=== PATIENT | female | born 1960 | race Two or more races ===

== ENCOUNTER 2024-05-05 10:55 | Outpatient (AMB) | payer BC, SELFPAY ==
[2024-05-05 11:11] VITALS: BP 167/102; PULSE 75; RESP 19; TEMP 36.4; O2SAT 95; BMI 28.3
--- NOTE | 2024-05-05 11:11 | GSCOFFNT_ITS ---
Vital Signs - [facility] 05/05/24 11:11 Height 1.68 m Height Method Stated Weight 79.634 kg Weight Measurement Method Standing Scale BMI 28.3 BP 167/102 H Blood Pressure Source Automatic Cuff Blood Pressure Location Right Upper Arm Position Sitting Respiration 19 Pulse 75 Pulse Source Monitor Temp 97.5 F Temp Source Temporal Artery Scan Pulse Oximetry (%) 95 Oxygen Delivery Method Room Air Med/Allergies Allergies & Medications Allergies No Known Drug Allergies Allergy (Verified 05/05/24 11:12) Medication Reconciliation No Known Home Medications 05/05/24 [History Confirmed 05/05/24] MA Intake Visit Data Collection New Patient or Established: New Patient (never been to [facility]) Reason for Visit:: REFERRAL FOR ADENOCARCINOMA Pain Present Currently: No Pain scale:: 0 Pain Scale Used: Montes De Oca-Schmidt/Numerical Learning [employer] Development Officer Required: No PCP or OBGYN visit in last 3 months: Yes Hx Now: No Do You Feel Safe at Home: Yes Authorities Contacted: N/A Smoking Status Smoking Status: Never smoker Immunization / Flu Flu Vaccine in the Last 12 Months: No Flu Vaccine Exclusion Criteria: Refused by Patient Past Medical History Surgical History SURGICAL: Positive Abdominal Surgery (TUMMY TUCK ), Section (3) and Hx Cholecystectomy OTHER SURGICAL HX: Other surgical history: BREAST REDUCTION , COLONOSCOPY ON 2023 Social History SMOKING STATUS: Smoking status: Never smoker Travel Risk Travel Hx Recent Travel: No HPI HPI Narrative 63F referred for finding of 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 Pt underwent her first screening colonoscopy 04/13/[address] Nguyen with findings of a 2mm polyp in cecum, 3mm polyp in transvesre colon, 10mm polyp in sigmoid colon and 18mm polyp in distal sigmoid colon with mucosal changes, removed by hot snare. Pathology of the distal sigmoid polyp showed invasive adenocarcinoma, moderately differentiated while the remaining polyps were tubular adenomas. Pt reports that she feels well overall, has occasional R lower abdominal pain which is mild, but denies any changes in her bowel habits, blood in stool, anorexia a nd unintentional weight loss. She has not yet undergone a staging workup PMH: Vitamin D deficiency PSHx: Cholecystectomy in 1986, tubal ligation, breast reduction, abdominoplasty 2003 Meds: Vit D Allergies: NKDA Social hx: Nonsmoker FHx: No known family history of malignancy ROS Review of Systems Systems Reviewed: All systems reviewed, normal except as documented Objective/Exam General General Appearance: alert, cooperative and well groomed Resp Respiratory exam: Absent respiratory distress Abdominal Abdominal exam: Present soft and incision (RUQ open cholecystectomy scar, transverse abdominoplasty scar); Absent distention or tenderness Results Colonoscopy and pathology reports reviewed Assessment & Plan Diagnosis / Problem List (1) Colon adenocarcinoma: Status: Acute Assessment & Plan: 63F overall healthy who was found to have invasive adenocarcinoma of the sigmoid on screening colonoscopy. I explained that a full staging workup will include CT AP and CXR, and that sigmoidoscopy will be helpful for tattooing the lesion (it seems it was clipped during colonoscopy but not tattooed) which will aid in finding the lesion intraoperatively. I did inform pt that she may be a candidate for minimally invasive resection which would mean smaller incisions and a faster recovery, but that she would need to be referred to another provider. I also let her know I could perform the surgery in an open fashion if she is agreeable to that. Pt understandably needs some time to consider but would like to pursue workup in the meantime Plan: Sigmoidoscopy for tattooing (golytely prep not needed, I instructed pt to drink only clears the day before and she will need an enema) CXR, CT AP Will follow up after above is completed Orders: Orders XR chest 2V [address] abdomen pelvis w con 1 Week Advanced Care Planning Advance care planning discussed with:: patient and spouse Patient Portal Questionaires Social History Tobacco History Smoking Status: Never smoker Domestic Abuse History Do You Feel Safe at Home: Yes Review of Systems Report any current symptoms Only answer those that you have currently: Past Medical History Past Medical History Have you ever been diagnosed with any of the following:
== END 2024-05-05 11:39 | disposition home or self-care (01) ==
PROVIDERS: PCP Internal Medicine Gastroenterology; Referring Provider Internal Medicine Gastroenterology; Supervising Provider Surgery; Visit Provider Surgery
DX: C18.9 Malignant neoplasm of colon, unspecified (principal)
CPT/HCPCS: 99205; G0463

== ENCOUNTER → 2024-05-09 | Outpatient (CLI) | payer BC, SELFPAY ==
--- NOTE | 2024-05-09 | XR_ITS ---
Examination: PA lateral chest 2 views TECHNIQUE: Upright PA lateral chest 2 views Exam date and time: May 09, 2024 1259 hours INDICATIONS: Diagnosis malignant neoplasm colon April 13, 2024 FINDINGS: Normal heart size. Lungs are clear. Moderate thoracic spondylosis IMPRESSION: No active disease
--- NOTE | 2024-05-09 14:23 | XR_ITS ---
Examination: CT abdomen with intravenous contrast CT pelvis with intravenous contrast 2-D coronal reconstructions 2-D sagittal reconstructions Date and time of exam:May 09, 2024 1509 hours INDICATIONS: Diagnosis malignant neoplasm colon, sigmoid polyp staging. CTDI: vol (mGy) 10.9 DLP: (mGycm) 633 Technique: Multiple axial sections of the abdomen and pelvis have been obtained. 64 slice high-resolution scanner used. 3 mm axial sections have been obtained, post intravenous injection 60 cc [id number] 2-D sagittal, coronal reconstructions obtained. Low dose protocols were performed. One or more of the following dose reduction techniques were used; automated exposure control, adjustment of the mA and/or KV according to patient size, use of iterative reconstruction technique. Findings: 8mm right lobe liver lesion axial image 63 No biliary tract dilatation Spleen not enlarged Gallbladder not visualized No pancreatic or adrenal mass No renal or ureteral calculi, no hydronephrosis Normal appendix No bowel obstruction No abdominal or pelvic lymphadenopathy No pelvic mass Urinary bladder intact Prominent osteopenia IMPRESSION: 8mm right lobe liver lesion, recommend MRI abdomen liver follow-up pre and postcontrast
== END | disposition home or self-care (01) ==
PROVIDERS: PCP Family Medicine; Referring Provider Surgery; Visit Provider Surgery
DX: K76.9 Liver disease, unspecified (principal); C18.9 Malignant neoplasm of colon, unspecified
CPT/HCPCS: 71046; 74177; A4649; Q9967

== ENCOUNTER 2024-05-12 10:50 | Day surgery (SDC) | payer BC, SELFPAY ==
[2024-05-09 14:00] LABS: Albumin, Serum 4.8 gm/dL (3.4-4.8); Anion Gap 6 (7-16); BUN/Creatinine Ratio 18 Ratio (12-20); Blood Urea Nitrogen 14 mg/dL (9-23); Calcium 9.5 mg/dL (8.3-10.6); Calcium (Corrected) 9.5 mg/dL (8.5-10.1); Carbon Dioxide 28.7 mMol/L (20.0-31.0); Chloride 103 mMol/L (98-107); Creatinine (Component) 0.8 mg/dL (0.6-1.3); Glucose 90 mg/dL (74-106); Osmolality,Calculated 276 (275-295); Phosphorous 3.2 mg/dL (2.4-5.1); Sodium 138 mMol/L (136-145); eGFR > 60 See Note
[2024-05-11 10:11] VITALS: BMI 28.2
[2024-05-11 13:12] LABS: Basophils # (Auto) 0.1 Thou/mm3 (0.0-0.2); Basophils % (Auto) 1 % (0-2.5); Eosinophils # (Auto) 0.1 Thou/mm3 (0.0-0.5); Eosinophils % (Auto) 1 % (0-10); Hematocrit 44.5 % (36.0-46.0); Hemoglobin 15.2 g/dL (12.0-16.0); Immature Granulocytes % (Auto) 0 % (0-0); Immature Granulocytes Auto 0.03 Thou/mm3 (0.00-0.00); Lymphocytes # (Auto) 2.7 Thou/mm3 (1.0-4.8); Lymphocytes % (Auto) 31 % (10-50); Mean Corpuscular HGB Conc 34.2 g/dl (31.0-37.0); Mean Corpuscular Hemoglobin 30.8 pg (25.0-35.0); Mean Corpuscular Volume 90 fL (80-100); Monocytes # (Auto) 0.7 Thou/mm3 (0.0-0.8); Monocytes % (Auto) 8 % (0-12); Neutrophils # (Auto) 5.2 Thou/mm3 (1.8-7.7); Neutrophils % (Auto) 60 % (37-80); Nucleated Red Blood Cell % 0 /100 WBC (0); Platelet Count 250 Thou/mm3 (140-440); RDW Standard Deviation 46.7 fL (36.4-46.3); Red Blood Count 4.94 Miln/mm3 (4.00-5.20); White Blood Count 8.7 Thou/mm3 (3.6-11.0)
[2024-05-11 13:20] LABS: Partial Thromboplastin Time 28.3 Seconds (22.0-36.0); Prothrombin Time 11.2 Seconds (9.0-12.2)
[2024-05-12] VITALS (9 sets, daily range): BP systolic 130–163; BP diastolic 80–103; PULSE 72–89; RESP 11–18; TEMP 36.2–36.7; O2SAT 94–99; BMI 27.9
[2024-05-12] MEDS: MIDAZOLAM INJ 1 MG/ML VIAL 2 ML (ASD USE ONLY) 2 MG IV (12:09)
[2024-05-12] MEDS: fentaNYL CIT INJ 50 mCg/ML AMP 2ML (ASD USE ONLY) IV (12:09)
[2024-05-12] MEDS: DiphenhydrAMINE INJ 50 MG/ML VIAL 25 MG IV (12:09)
== END 2024-05-12 13:18 | disposition home or self-care (01) ==
PROVIDERS: PCP Family Medicine; Referring Provider Surgery; Visit Provider Surgery
PROC: 0DJD8ZZ Inspection of Lower Intestinal Tract, Via Natural or Artificial Opening Endoscopic (ICD-10-PCS; CPT 45330; principal; 2024-05-12 12:00)
DX: D12.4 Benign neoplasm of descending colon (principal); Z85.038 Personal history of other malignant neoplasm of large intestine
CPT/HCPCS: 45331; 36415; 80053; 80069; 85025; 85610; 85730; A4649; J1200; J2250; J3010